=== PATIENT | male | born 1940 | race African-American/Black ===

== ENCOUNTER 2021-05-08 00:08 | Inpatient (IN) ==
[2021-05-08] MEDS ORDERED: ONDANSETRON 4 MG/2 ML VIAL IV PRN ×2 (01:21→15:20)
[2021-05-08] MEDS ORDERED: MAGNESIUM HYDROXIDE SUSP 30 ML UDCUP PO PRN ×2 (01:21→14:39)
[2021-05-08] MEDS ORDERED: CLINDAMYCIN INJ 900 MG/50 ML PREMIX IV ONE ×2 (01:21→13:00)
[2021-05-08] MEDS ORDERED: HYDROmorphone 2 MG/1 ML VIAL IV STA (01:25)
[2021-05-08] MEDS ORDERED: ONDANSETRON 4 MG/2 ML VIAL IV STA (01:25)
[2021-05-08 02:04] LABS: Albumin 3.7 G/DL (3.4-5.0); Basophils % 0.2 % (0.0-0.8); Bilirubin,Total 1.1 MG/DL (0.20-1.00); Calcium 8.9 MG/DL (8.5-10.1); Eosinophils % 0.1 % (0.00-10.9); Hematocrit 36.4 VOL% (42.0-52.0); Hemoglobin 12.5 GM/DL (14.0-18.0); Immature Granulocytes % 0.5 %; Immature Granulocytes Absolute 0.05 #; Lymphocytes # 1.3 10*3/uL (1.4-4.0); Lymphocytes % 12.8 % (21.2-54.2); Mean Corpuscular HGB Conc 34.3 GM/DL (32-36); Mean Corpuscular Volume 94.8 FL (87-102); Mean Platelet Volume 10.4 FL (9.6-12.0); Monocytes % 6.4 % (1.7-12.7); Osmolality,Calculated 284.5 MOS/KG (273-304); Platelet Count 207 T/CUMM (130-400); Potassium 4.2 MMOL/L (3.5-5.1); Red Blood Count 3.84 MC/CUMM (3.8-5.5); Red Cell Distribution Width 13.6 % (9.3-17.3); Total Protein 7.6 G/DL (6.4-8.2); White Blood Count 10.4 T/CUMM (4-12)
[2021-05-08] MEDS: SODIUM CHLORIDE 0.9% 1,000 ML IV SCH ×3 (02:40→17:11)
[2021-05-08 04:03] LABS: Hypochromasia 1+; Microcytosis Slight
[2021-05-08 04:04] LABS: Platelet Estimate Normal
[2021-05-08] MEDS: HYDROmorphone 2 MG/1 ML VIAL IV PRN ×2 (04:35→09:33)
[2021-05-08] MEDS: ENOXAPARIN 40 MG/0.4 ML SYRINGE SUBCUT SCH (09:04)
[2021-05-08] MEDS ORDERED: ROCURONIUM 50 MG/5 ML VIAL IV ONE (12:30)
[2021-05-08] MEDS ORDERED: LIDOCAINE 2% 5 ML VIAL ONE (12:30)
[2021-05-08] MEDS ORDERED: propofoL 200 MG/20 ML VIAL IV ONE (12:30)
[2021-05-08] MEDS ORDERED: fentaNYL 100 MCG/2 ML VIAL ONE ×2 (12:31→13:44)
[2021-05-08] MEDS ORDERED: BUPIVACAINE SPINAL 0.75% 2 ML AMP SPINAL ONE (12:42)
[2021-05-08] MEDS ORDERED: MIDAZOLAM 2 MG/2 ML VIAL ONE (12:44)
[2021-05-08] MEDS ORDERED: KETAMINE 500 MG/10 ML VIAL ONE (12:51)
[2021-05-08] MEDS ORDERED: DEXAMETHASONE 4 MG/1 ML VIAL ONE (13:28)
[2021-05-08] MEDS ORDERED: ONDANSETRON 4 MG/2 ML VIAL ONE (13:28)
[2021-05-08] MEDS ORDERED: SEVOFLURANE 1 UNIT/15 MINUTE INH ONE ×4 (13:42→14:41)
[2021-05-08] MEDS ORDERED: LACTULOSE 20 GM/30 ML UDCUP PO PRN (14:39)
[2021-05-08] MEDS ORDERED: diphenhydrAMINE CAP 25 MG CAPSULE PO PRN (14:39)
[2021-05-08] MEDS ORDERED: PROMETHAZINE 25 MG/1 ML VIAL IM PRN (14:39)
[2021-05-08] MEDS ORDERED: BISACODYL 10 MG SUPP RECTAL PRN (14:39)
[2021-05-08] MEDS ORDERED: HYDROmorphone 2 MG/1 ML VIAL IV PRN (15:20)
[2021-05-08] MEDS ORDERED: HYDROmorphone 2 MG/1 ML VIAL ONE (15:27)
[2021-05-08] MEDS ORDERED: MORPHINE 10 MG/1 ML VIAL IV PRN (15:30)
[2021-05-08] MEDS: ATORVASTATIN 80 MG TABLET PO SCH (20:20)
[2021-05-08] MEDS: MORPHINE 2 MG/1 ML SYRINGE IV PRN (22:20)
[2021-05-08] MEDS: CLINDAMYCIN INJ 900 MG/50 ML PREMIX IV SCH (22:20)
[2021-05-09] MEDS: MORPHINE 2 MG/1 ML SYRINGE IV PRN (03:45)
[2021-05-09] MEDS: SODIUM CHLORIDE 0.9% 1,000 ML IV SCH (04:15)
[2021-05-09] MEDS: CLINDAMYCIN INJ 900 MG/50 ML PREMIX IV SCH ×2 (06:30→14:58)
[2021-05-09 06:37] LABS: Basophils % 0.1 % (0.0-0.8); Hematocrit 26.2 VOL% (42.0-52.0); Hemoglobin 9.1 GM/DL (14.0-18.0); Immature Granulocytes % 0.5 %; Immature Granulocytes Absolute 0.06 #; Lymphocytes # 0.9 10*3/uL (1.4-4.0); Lymphocytes % 7.3 % (21.2-54.2); Mean Corpuscular HGB Conc 34.7 GM/DL (32-36); Mean Corpuscular Volume 94.2 FL (87-102); Mean Platelet Volume 9.5 FL (9.6-12.0); NRBC # 0.02 10*3/uL; Neutrophils % 86.1 % (38.7-73.9); Platelet Count 149 T/CUMM (130-400); Red Blood Count 2.78 MC/CUMM (3.8-5.5); Red Cell Distribution Width 13.6 % (9.3-17.3); White Blood Count 11.6 T/CUMM (4-12)
[2021-05-09 06:41] LABS: Hypochromasia 1+; Microcytosis 1+; Platelet Estimate Adequate
[2021-05-09] MEDS: POTASSIUM CHLORIDE 20 MEQ TABLET PO SCH (08:35)
[2021-05-09] MEDS: ENOXAPARIN 40 MG/0.4 ML SYRINGE SUBCUT SCH (08:35)
[2021-05-09] MEDS: amLODIPine 10 MG TABLET PO SCH (08:35)
[2021-05-09] MEDS: ASPIRIN EC 81 MG TABLET PO SCH (08:35)
[2021-05-09 16:09] LABS: Basophils % 0.2 % (0.0-0.8); Eosinophils % 0.3 % (0.00-10.9); Hematocrit 24.3 VOL% (42.0-52.0); Hemoglobin 9.1 GM/DL (14.0-18.0); Immature Granulocytes % 0.6 %; Immature Granulocytes Absolute 0.07 #; Lymphocytes # 1.6 10*3/uL (1.4-4.0); Lymphocytes % 13.7 % (21.2-54.2); Mean Corpuscular HGB Conc 37.4 GM/DL (32-36); Mean Corpuscular Volume 101.3 FL (87-102); Monocytes % 6.4 % (1.7-12.7); Neutrophils % 78.8 % (38.7-73.9); Platelet Count 138 T/CUMM (130-400); Red Cell Distribution Width 14.6 % (9.3-17.3); White Blood Count 11.7 T/CUMM (4-12)
[2021-05-09] MEDS ORDERED: TUBERCULIN SKIN TEST 0.1 ML SYRINGE INTRADERM ONE (17:02)
[2021-05-09] MEDS: ATORVASTATIN 80 MG TABLET PO SCH (20:28)
[2021-05-10 06:04] LABS: Basophils % 0.1 % (0.0-0.8); Eosinophils # 0.1 10*3/uL (0.0-0.87); Eosinophils % 1.2 % (0.00-10.9); Immature Granulocytes % 0.5 %; Immature Granulocytes Absolute 0.05 #; Lymphocytes # 1.8 10*3/uL (1.4-4.0); Lymphocytes % 19.2 % (21.2-54.2); Mean Corpuscular HGB Conc 33.3 GM/DL (32-36); Mean Platelet Volume 9.3 FL (9.6-12.0); Monocytes % 7.4 % (1.7-12.7); Neutrophils % 71.6 % (38.7-73.9); Platelet Count 144 T/CUMM (130-400); Red Cell Distribution Width 13.8 % (9.3-17.3); White Blood Count 9.5 T/CUMM (4-12)
[2021-05-10 06:36] LABS: Hypochromasia 1+; Microcytosis 1+
[2021-05-10 06:37] LABS: Platelet Estimate Adequate; Rouleau Slight
[2021-05-10] MEDS: POTASSIUM CHLORIDE 20 MEQ TABLET PO SCH (08:12)
[2021-05-10] MEDS: ASPIRIN EC 81 MG TABLET PO SCH (08:12)
[2021-05-10] MEDS: ENOXAPARIN 40 MG/0.4 ML SYRINGE SUBCUT SCH (08:12)
[2021-05-10] MEDS: amLODIPine 10 MG TABLET PO SCH (08:12)
[2021-05-10 16:41] VITALS: BP 132/56
== END 2021-05-10 18:05 | disposition swing bed (61) | DRG 481 ==
LOC: EDBD → EDUNIT# → N.ED 00:08 → N.EDINP 00:57 → N.3E 01:58
PROVIDERS: ADMIT Orthopaedic Surgery; ATTEND Orthopaedic Surgery